=== PATIENT | female | born 1985 | race Caucasian/White ===

== ENCOUNTER → 2019-04-29 | Outpatient (CLI) | payer SELFPAY ==
[~2019-04-29] MED LIST: IBUP800; IBUP800 PO; IRON150C; OXYACE5T; OXYACE5T PO; Verotin-Gr Cap1 EACH; Verotin-Gr Cap1 EACH PO
== END | disposition home or self-care (01) ==
LOC: LAB 09:10 → LAB SHORT 09:10
DX: J02.9 Acute pharyngitis, unspecified (principal)
CPT/HCPCS: 87081

== ENCOUNTER 2020-07-16 20:49 | Emergency (ER) | payer SELFPAY ==
[~2020-07-16] VITALS: Ht 160 cm; Wt 61.7 kg
[2020-07-16] MEDS ORDERED: Voltaren100 GM TOP (23:47)
== END 2020-07-17 00:18 | disposition home or self-care (01) ==
LOC: ER 20:49
DX: M79.622 Pain in left upper arm (principal); Z88.0 Allergy status to penicillin; Z91.02 Food additives allergy status
CPT/HCPCS: 71045; 99283-25

== ENCOUNTER → 2020-09-27 | Outpatient (CLI) | payer SELFPAY ==
[~2020-09-27] MED LIST changes: +Voltaren100 GM TOP
[2020-09-28 15:11] LABS: HPV 16 Negative (Negative); HPV 18 Negative (Negative); HPV OTHER HR TYPES Negative (Negative)
== END ==
LOC: LAB SHORT 14:45 → LAB 14:45
PROVIDERS: Obstetrics & Gynecology
DX: Z12.4 Encounter for screening for malignant neoplasm of cervix (principal)
CPT/HCPCS: 87624; G0123

== ENCOUNTER 2020-11-14 18:49 | Emergency (ER) | payer SELFPAY ==
[~2020-11-14] VITALS: Ht 160 cm; Wt 61.2 kg
== END 2020-11-14 21:21 | disposition home or self-care (01) ==
LOC: ER 18:49
DX: S66.102A Unspecified injury of flexor muscle, fascia and tendon of right middle finger at wrist and hand level, initial encounter (principal); Z88.0 Allergy status to penicillin; Z91.02 Food additives allergy status; W21.01XA Struck by football, initial encounter; Y92.89 Other specified places as the place of occurrence of the external cause
CPT/HCPCS: 73140; 99283-25; A9270

== ENCOUNTER 2024-08-24 12:44 | Emergency (ER) | payer SELFPAY ==
[~2024-08-24] VITALS: Ht 160 cm; Wt 61.2 kg
[2024-08-24 13:15] VITALS: BP 163/88
[2024-08-24] MEDS ORDERED: Ondansetron HCl 2 MG / ML 2ML Vial IV ONE (13:25)
[2024-08-24 13:41] LABS: BASOPHILS ABSOLUTE AUTO 0.03 K/mm3 (0.00-0.23); BASOPHILS PERCENT AUTO 1 % (0-2); EOSINOPHILS ABSOLUTE AUTO 0.03 K/mm3 (0.00-0.68); EOSINOPHILS PERCENT AUTO 1 % (0-6); Hematocrit 41.7 % (33.0-51.0); Hemoglobin 15.1 g/dL (11.5-16.0); IMMATURE GRAN ABSOLUTE AUTO 0.02 K/mm3 (0.00-0.10); IMMATURE GRAN PERCENT AUTO 0 % (0-1); LYMPHOCYTES ABSOLUTE AUTO 1.91 K/mm3 (0.84-5.20); LYMPHOCYTES PERCENT AUTO 30 % (21-46); MONOCYTES ABSOLUTE AUTO 0.44 K/mm3 (0.16-1.47); MONOCYTES PERCENT AUTO 7 % (4-13); Mean Corpuscular HGB 31.6 pg (26.0-34.0); Mean Corpuscular HGB Conc 36.2 g/dL (31.5-36.5); Mean Corpuscular Volume 87 fL (80-100); Mean Platelet Volume 9.6 fL (9.1-12.4); NEUTROPHILS ABSOLUTE AUTO 3.87 K/mm3 (1.96-9.15); NEUTROPHILS PERCENT AUTO 61 % (41-73); Platelet Count 235 K/mm3 (150-400); RDW Coefficient Variation 11.8 % (11.7-14.2); RDW Standard Deviation 37.6 fL (35.1-46.3); Red Blood Cell Count 4.78 M/mm3 (3.80-5.20)
[2024-08-24 14:04] LABS: Albumin, Blood 4.6 g/dL (3.4-5.0); Albumin/Globulin Ratio 1.3 (0.8-1.8); Bilirubin, Total 0.6 mg/dL (0.1-1.0); Bun/Creatinine Ratio 15.2 (12.0-20.0); Calcium, Blood 9.3 mg/dL (8.5-10.1); Creatinine, Blood 1.05 mg/dL (0.40-1.00); Globulin, Blood 3.5 g/dL (2.2-4.0); Potassium, Blood 3.9 mmol/L (3.5-5.5); Total Protein, Blood 8.1 g/dL (6.4-8.2)
== END 2024-08-24 16:14 | disposition home or self-care (01) ==
LOC: ER 12:44
PROVIDERS: Student in an Organized Health Care Education/Training Program
DX: N83.201 Unspecified ovarian cyst, right side (principal)
CPT/HCPCS: 76705; 80053; 83690; 85025; 87086; 96374; 99284-25; J2405

== ENCOUNTER → 2024-09-06 | Outpatient (CLI) | payer SELFPAY | END | disposition home or self-care (01) | LOC: LAB 09:30 → LAB SHORT 09:30 | DX: K21.9 Gastro-esophageal reflux disease without esophagitis (principal) | CPT/HCPCS: 87338 ==